=== PATIENT | male | born 1955 | race Caucasian/White ===

== ENCOUNTER 2017-07-20 14:03 | Inpatient (IN) | payer OTHER ==
[2017-07-20 15:46] LABS: ADD MAN DIFF? NO
[2017-07-20 15:48] LABS: WHITE BLOOD COUNT 14.3 10^3/ul (4.8-10.8)
[2017-07-20 15:48] LABS: BASOPHIL # 0.1 10^3/ul (0.0-0.1); BASOPHILS % 0.3 % (0.0-2.0); EOSINOPHILS # 0.1 10^3/ul (0.0-0.5); EOSINOPHILS % 0.9 % (0.0-7.0); HEMOGLOBIN 13.9 g/dl (14.0-18.0); LYMPHOCYTES # 4.5 10^3/ul (0.8-2.9); LYMPHOCYTES % 31.4 % (15.0-51.0); MEAN CORPUSCULAR HGB CONC 32.3 g/dl (32.0-37.0); MEAN CORPUSCULAR VOLUME 89.8 fl (82.0-101.0); MEAN PLATELET VOLUME 11.3 fl (7.4-10.4); MONOCYTE # 1.4 10^3/ul (0.3-0.9); MONOCYTES % 9.5 % (0.0-11.0); NEUTROPHIL # 8.2 10^3/ul (1.6-7.5); NEUTROPHILS % 57.4 % (39.0-77.0); PLATELET COUNT 266 10^3/UL (140-415); POSITIVE DIFF @See below; RED BLOOD COUNT 4.79 10^6/ul (4.70-6.10); RED CELL DISTRIBUTION WIDTH 13.6 % (11.5-14.5)
[2017-07-20 16:07] LABS: ANION GAP 13 (8-16); BLOOD UREA NITROGEN 44 mg/dl (7-20); CARBON DIOXIDE 26 mmol/L (21-31); CHLORIDE 105 mmol/L (97-110); GLUCOSE 233 mg/dl (70-220); POTASSIUM 4.6 mmol/L (3.5-5.1); SODIUM 139 mmol/L (135-144)
[2017-07-20 16:08] LABS: ALANINE AMINOTRANSFERASE 33 IU/L (13-69); ALBUMIN 3.8 g/dl (3.3-4.9); ALBUMIN/GLOBULIN RATIO 1.11; ALKALINE PHOSPHATASE 98 IU/L (42-121); ASPARTATE AMINO TRANSFERASE 30 IU/L (15-46); BILIRUBIN,INDIRECT 0.2 mg/dl (0-1.1); BILIRUBIN,TOTAL 0.2 mg/dl (0.2-1.3); CALCIUM 9.5 mg/dl (8.4-10.2); CREATININE 1.22 mg/dl (0.61-1.24); INR 1.04; PROTIME 13.7 Sec (11.9-14.9); PT RATIO 1.1; TOTAL PROTEIN 7.2 g/dl (6.1-8.1)
[2017-07-20] MEDS: DILTIAZEM 25 MG INJ IV (16:11)
[2017-07-20] MEDS: DILTIAZEM-D5W 125MG/125ML DRIP 125 ML IV (16:13)
[2017-07-20 16:18] LABS: B-TYPE NATRIURETIC PEPTIDE 487 PG/ML (0-125); TROPONIN-I 0.027 ng/ml (0.00-0.12)
[2017-07-20] MEDS ORDERED: ADENOSINE 3 MG/ML SYRINGE IV (17:00)
[2017-07-20] MEDS: ADENOSINE 3 MG/ML 2ML VIAL IV (17:19)
[2017-07-20] MEDS: ADENOSINE 6 MG INJ IV ×2 (17:21→17:23)
[2017-07-20] MEDS: AMIODARONE 150MG/D5W BOLUS 100 ML IV (17:48)
[2017-07-20] MEDS ORDERED: ACETAMINOPHEN 325 MG TAB PO ×2 (18:00→18:30)
[2017-07-20] MEDS ORDERED: ONDANSETRON 4 MG INJ IV ×2 (18:00→18:30)
[2017-07-20] MEDS ORDERED: NACL 0.9% 3 ML SYG IV (18:30)
[2017-07-20] MEDS ORDERED: HYDROCODONE/APAP (5/325) TAB PO (18:30)
[2017-07-20] MEDS ORDERED: LORAZEPAM 2 MG INJ IV (18:30)
[2017-07-20] MEDS ORDERED: BISACODYL (EC) 5 MG TAB PO (18:30)
[2017-07-20] MEDS: morphine 2 MG INJ IV ×2 (18:47→23:12)
[2017-07-20] MEDS: SOD CHLORIDE 0.45% 1,000 ML IV (18:48)
[2017-07-20] MEDS ORDERED: GLUCOSE GEL 15 GRAM TUBE BUCCAL (19:30)
[2017-07-20] MEDS ORDERED: GLUCAGON 1 MG INJ IM (19:30)
[2017-07-20] MEDS ORDERED: GLUCOSE GEL 15 GRAM TUBE PO ×2 (19:30)
[2017-07-20] MEDS ORDERED: DEXTROSE 50% 50 ML SYRINGE IV ×2 (19:30)
[2017-07-20] MEDS ORDERED: ALBUTEROL/IPRATROPIUM (NEB) 3 ML AMP HHN (19:30)
[2017-07-20] MEDS: AMIODARONE 900 MG in DEXTROSE 5% 482 ML IV (19:37)
[2017-07-20] MEDS: PROPOFOL 200 MG INJ IV (21:37)
[2017-07-20] MEDS: FENTAnyl 50 MCG/ML VIAL IV (21:37)
[2017-07-20 22:13] LABS: CREATINE KINASE 154 IU/L (23-200)
[2017-07-20 22:25] LABS: CK INDEX 1.4; TROPONIN-I 0.042 ng/ml (0.00-0.12)
[2017-07-20 22:35] LABS: CK-MB 2.11 ng/ml (0.0-2.4)
[2017-07-20] MEDS: TAMSULOSIN (SR) 0.4 MG CAP PO (23:07)
[2017-07-20] MEDS: APIXABAN 5 MG TABLET PO (23:07)
[2017-07-20] MEDS: GABAPENTIN 300 MG CAP PO (23:07)
[2017-07-20] MEDS: INSULIN ASPART [NOVOLOG] 3 ML PEN SC (23:41)
[2017-07-20] MEDS: INSULIN GLARGINE [LANtus] 3 ML PEN SC (23:47)
[2017-07-21] MEDS: ACCU-CHEK XX (02:00)
[2017-07-21] MEDS: DILTIAZEM-D5W 125MG/125ML DRIP 125 ML IV (04:07)
[2017-07-21] MEDS: morphine 2 MG INJ IV ×4 (04:54→20:55)
[2017-07-21] MEDS: PANTOPRAZOLE 40 MG INJ IV (05:36)
[2017-07-21 06:09] LABS: ADD MAN DIFF? NO
[2017-07-21 06:19] LABS: ABNORMAL IP MESSAGE 1; BASOPHIL # 0.1 10^3/ul (0.0-0.1); BASOPHILS % 0.5 % (0.0-2.0); EOSINOPHILS # 0.2 10^3/ul (0.0-0.5); EOSINOPHILS % 1.2 % (0.0-7.0); HEMATOCRIT 43.3 % (42.0-52.0); HEMOGLOBIN 13.7 g/dl (14.0-18.0); LYMPHOCYTES # 5.3 10^3/ul (0.8-2.9); LYMPHOCYTES % 41.3 % (15.0-51.0); MEAN CORPUSCULAR HGB CONC 31.6 g/dl (32.0-37.0); MEAN CORPUSCULAR VOLUME 91.7 fl (82.0-101.0); MEAN PLATELET VOLUME 11.6 fl (7.4-10.4); MONOCYTE # 1.3 10^3/ul (0.3-0.9); MONOCYTES % 9.7 % (0.0-11.0); NEUTROPHIL # 6.1 10^3/ul (1.6-7.5); NEUTROPHILS % 46.9 % (39.0-77.0); PLATELET COUNT 242 10^3/UL (140-415); POSITIVE DIFF @See below; RED BLOOD COUNT 4.72 10^6/ul (4.70-6.10); RED CELL DISTRIBUTION WIDTH 13.7 % (11.5-14.5)
[2017-07-21 06:19] LABS: WHITE BLOOD COUNT 12.9 10^3/ul (4.8-10.8)
[2017-07-21 06:31] LABS: ALANINE AMINOTRANSFERASE 40 IU/L (13-69); ALBUMIN 3.9 g/dl (3.3-4.9); ALBUMIN/GLOBULIN RATIO 1.25; ALKALINE PHOSPHATASE 85 IU/L (42-121); ANION GAP 15 (8-16); ASPARTATE AMINO TRANSFERASE 34 IU/L (15-46); BILIRUBIN,INDIRECT 0.3 mg/dl (0-1.1); BILIRUBIN,TOTAL 0.3 mg/dl (0.2-1.3); BLOOD UREA NITROGEN 40 mg/dl (7-20); CALCIUM 9.1 mg/dl (8.4-10.2); CARBON DIOXIDE 26 mmol/L (21-31); CHLORIDE 105 mmol/L (97-110); CREATININE 1.18 mg/dl (0.61-1.24); GLUCOSE 184 mg/dl (70-220); MAGNESIUM 1.9 mg/dl (1.7-2.5); POTASSIUM 4.6 mmol/L (3.5-5.1); SODIUM 141 mmol/L (135-144)
[2017-07-21] MEDS: SOD CHLORIDE 0.45% 1,000 ML IV (06:33)
[2017-07-21 06:35] LABS: CREATINE KINASE 120 IU/L (23-200)
[2017-07-21 06:37] LABS: B-TYPE NATRIURETIC PEPTIDE 249 PG/ML (0-125)
[2017-07-21 06:43] LABS: CK INDEX 1.6; TROPONIN-I 0.058 ng/ml (0.00-0.12)
[2017-07-21 06:46] LABS: CK-MB 1.89 ng/ml (0.0-2.4)
[2017-07-21] MEDS: INSULIN ASPART [NOVOLOG] 3 ML PEN SC ×4 (09:04→20:34)
[2017-07-21] MEDS: GABAPENTIN 300 MG CAP PO ×3 (09:06→20:28)
[2017-07-21] MEDS: BENAZEPRIL 10 MG TAB PO (09:06)
[2017-07-21] MEDS: THIAMINE 100 MG TAB PO (09:06)
[2017-07-21] MEDS: APIXABAN 5 MG TABLET PO ×2 (09:06→20:28)
[2017-07-21] MEDS: FAMOTIDINE 20 MG TAB PO (09:06)
[2017-07-21] MEDS: TAMSULOSIN (SR) 0.4 MG CAP PO ×2 (09:06→20:28)
[2017-07-21] MEDS: FUROSEMIDE 40 MG TAB PO (09:06)
[2017-07-21] MEDS: MAGNESIUM SULFATE 2 GM/50 ML 50 ML IVPB (14:30)
[2017-07-21] MEDS: DIGOXIN 500 MCG INJ IV (14:30)
[2017-07-21] MEDS: SILVER SULFADIAZINE 1% 25 GM CR TOP (20:29)
[2017-07-21] MEDS: INSULIN GLARGINE [LANtus] 3 ML PEN SC (20:33)
[2017-07-22] MEDS: morphine 2 MG INJ IV ×4 (00:56→15:06)
[2017-07-22] MEDS: ACCU-CHEK XX (02:00)
[2017-07-22] MEDS: PANTOPRAZOLE 40 MG INJ IV (04:58)
[2017-07-22] MEDS: INSULIN ASPART [NOVOLOG] 3 ML PEN SC ×4 (07:59→20:29)
[2017-07-22] MEDS: SILVER SULFADIAZINE 1% 25 GM CR TOP ×2 (08:10→20:30)
[2017-07-22] MEDS: FAMOTIDINE 20 MG TAB PO (08:11)
[2017-07-22] MEDS: GABAPENTIN 300 MG CAP PO ×3 (08:11→20:21)
[2017-07-22] MEDS: TAMSULOSIN (SR) 0.4 MG CAP PO ×2 (08:11→20:21)
[2017-07-22] MEDS: APIXABAN 5 MG TABLET PO ×2 (08:11→20:21)
[2017-07-22] MEDS: DILTIAZEM (CD) 120 MG CAP PO (08:12)
[2017-07-22] MEDS: FUROSEMIDE 40 MG TAB PO (08:12)
[2017-07-22] MEDS: BENAZEPRIL 5 MG TAB PO (08:12)
[2017-07-22] MEDS: THIAMINE 100 MG TAB PO (08:17)
[2017-07-22] MEDS: DIGOXIN 0.125 MG TAB PO (12:07)
[2017-07-22 14:27] LABS: ADD MAN DIFF? NO
[2017-07-22 14:36] LABS: BASOPHIL # 0.1 10^3/ul (0.0-0.1); BASOPHILS % 0.5 % (0.0-2.0); EOSINOPHILS # 0.2 10^3/ul (0.0-0.5); EOSINOPHILS % 1.8 % (0.0-7.0); HEMATOCRIT 41.9 % (42.0-52.0); HEMOGLOBIN 13.7 g/dl (14.0-18.0); LYMPHOCYTES # 3.7 10^3/ul (0.8-2.9); LYMPHOCYTES % 32.9 % (15.0-51.0); MEAN CORPUSCULAR HEMOGLOBIN 29.5 pg (29.0-33.0); MEAN CORPUSCULAR HGB CONC 32.7 g/dl (32.0-37.0); MEAN CORPUSCULAR VOLUME 90.1 fl (82.0-101.0); MEAN PLATELET VOLUME 11.7 fl (7.4-10.4); MONOCYTES % 9.4 % (0.0-11.0); NEUTROPHIL # 6.1 10^3/ul (1.6-7.5); NEUTROPHILS % 54.9 % (39.0-77.0); PLATELET COUNT 252 10^3/UL (140-415); RED BLOOD COUNT 4.65 10^6/ul (4.70-6.10); RED CELL DISTRIBUTION WIDTH 13.4 % (11.5-14.5)
[2017-07-22 14:36] LABS: WHITE BLOOD COUNT 11.1 10^3/ul (4.8-10.8)
[2017-07-22 14:57] LABS: ANION GAP 14 (8-16); BLOOD UREA NITROGEN 28 mg/dl (7-20); CALCIUM 9.6 mg/dl (8.4-10.2); CARBON DIOXIDE 26 mmol/L (21-31); CHLORIDE 101 mmol/L (97-110); CREATININE 0.92 mg/dl (0.61-1.24); GLUCOSE 194 mg/dl (70-220); MAGNESIUM 1.8 mg/dl (1.7-2.5); PHOSPHORUS 3.4 mg/dl (2.5-4.9); POTASSIUM 4.6 mmol/L (3.5-5.1); SODIUM 136 mmol/L (135-144)
[2017-07-22] MEDS: morphine LIQ (10 MG/5 ML) CUP PO (20:25)
[2017-07-22] MEDS: INSULIN GLARGINE [LANtus] 3 ML PEN SC (20:30)
[2017-07-23] MEDS: morphine LIQ (10 MG/5 ML) CUP PO ×3 (00:59→11:04)
[2017-07-23] MEDS: ACCU-CHEK XX (02:08)
[2017-07-23] MEDS: PANTOPRAZOLE 40 MG INJ IV (06:05)
[2017-07-23] MEDS: INSULIN ASPART [NOVOLOG] 3 ML PEN SC ×2 (07:48→11:54)
[2017-07-23] MEDS: BENAZEPRIL 5 MG TAB PO (08:25)
[2017-07-23] MEDS: DILTIAZEM (CD) 120 MG CAP PO (08:26)
[2017-07-23] MEDS: GABAPENTIN 300 MG CAP PO ×2 (08:26→12:15)
[2017-07-23] MEDS: FUROSEMIDE 20 MG TAB PO (08:26)
[2017-07-23] MEDS: FAMOTIDINE 20 MG TAB PO (08:26)
[2017-07-23] MEDS: APIXABAN 5 MG TABLET PO (08:27)
[2017-07-23] MEDS: TAMSULOSIN (SR) 0.4 MG CAP PO (08:27)
[2017-07-23] MEDS: SILVER SULFADIAZINE 1% 25 GM CR TOP (08:28)
[2017-07-23] MEDS: CEPASTAT LOZENGE MT (10:21)
[2017-07-23] MEDS: THIAMINE 100 MG TAB PO (10:21)
[2017-07-23] MEDS: DIGOXIN 0.125 MG TAB PO (12:15)
[2017-07-24] MEDS ORDERED: PANTOPRAZOLE (EC) 40 MG TAB PO (06:00)
== END 2017-07-23 16:00 | disposition home or self-care (01) | DRG 309 ==
LOC: MS4 07-22 00:09 → ICU 21:54 → E/R 14:03 → ICU 18:04
PROC: 5A2204Z Restoration of Cardiac Rhythm, Single (ICD-10-PCS; principal; 2017-07-20)
DX: I47.1 Supraventricular tachycardia (principal); Z68.42 Body mass index [BMI] 45.0-49.9, adult; I11.0 Hypertensive heart disease with heart failure; I50.9 Heart failure, unspecified; E66.9 Obesity, unspecified; E11.9 Type 2 diabetes mellitus without complications; I48.2 Chronic atrial fibrillation; F90.9 Attention-deficit hyperactivity disorder, unspecified type; E78.5 Hyperlipidemia, unspecified; J44.9 Chronic obstructive pulmonary disease, unspecified; Z79.4 Long term (current) use of insulin; Z79.02 Long term (current) use of antithrombotics/antiplatelets; Z87.891 Personal history of nicotine dependence
CPT/HCPCS: 36415; 71045; 80048; 80053; 82550; 82553; 82962; 83735; 83880; 84100; 84439; 84443; 84484; 85025; 85610; 87081; 93005; 93306; 96372; 96374; 96375; 96376; 99291-25

== ENCOUNTER 2017-08-19 12:35 | Inpatient (IN) | payer OTHER ==
[2017-08-19] MEDS: KETOROLAC 60 MG INJ IM (13:56)
[2017-08-19] MEDS: HYDROmorphONE 0.5 MG/0.5 ML SYG IV ×2 (16:20→20:39)
[2017-08-19] MEDS: ONDANSETRON 4 MG INJ IV (16:20)
[2017-08-19 16:38] LABS: ADD MAN DIFF? NO
[2017-08-19 16:39] LABS: WHITE BLOOD COUNT 18.1 10^3/ul (4.8-10.8)
[2017-08-19 16:39] LABS: BASOPHIL # 0.1 10^3/ul (0.0-0.1); BASOPHILS % 0.3 % (0.0-2.0); EOSINOPHILS # 0.3 10^3/ul (0.0-0.5); EOSINOPHILS % 1.8 % (0.0-7.0); HEMATOCRIT 45.3 % (42.0-52.0); HEMOGLOBIN 14.5 g/dl (14.0-18.0); LYMPHOCYTES # 3.9 10^3/ul (0.8-2.9); LYMPHOCYTES % 21.2 % (15.0-51.0); MEAN CORPUSCULAR HEMOGLOBIN 28.6 pg (29.0-33.0); MEAN CORPUSCULAR VOLUME 89.3 fl (82.0-101.0); MEAN PLATELET VOLUME 10.9 fl (7.4-10.4); MONOCYTE # 1.7 10^3/ul (0.3-0.9); MONOCYTES % 9.2 % (0.0-11.0); NEUTROPHIL # 12.1 10^3/ul (1.6-7.5); NEUTROPHILS % 66.7 % (39.0-77.0); PLATELET COUNT 333 10^3/UL (140-415); RED BLOOD COUNT 5.07 10^6/ul (4.70-6.10); RED CELL DISTRIBUTION WIDTH 13.7 % (11.5-14.5)
[2017-08-19 17:06] LABS: ANION GAP 16 (8-16); BLOOD UREA NITROGEN 26 mg/dl (7-20); CALCIUM 9.9 mg/dl (8.4-10.2); CARBON DIOXIDE 31 mmol/L (21-31); CHLORIDE 103 mmol/L (97-110); CREATININE 1.03 mg/dl (0.61-1.24); GLUCOSE 113 mg/dl (70-220); POTASSIUM 5.1 mmol/L (3.5-5.1); SODIUM 145 mmol/L (135-144)
[2017-08-19] MEDS ORDERED: ACETAMINOPHEN 325 MG TAB PO ×2 (18:30→19:00)
[2017-08-19] MEDS ORDERED: ONDANSETRON 4 MG INJ IV ×2 (18:30→19:00)
[2017-08-19] MEDS ORDERED: NACL 0.9% 3 ML SYG IV (19:00)
[2017-08-19] MEDS ORDERED: hydrALAzine 20 MG INJ IV (19:00)
[2017-08-19] MEDS ORDERED: GLUCOSE GEL 15 GRAM TUBE PO ×2 (19:30)
[2017-08-19] MEDS ORDERED: GLUCOSE GEL 15 GRAM TUBE BUCCAL (19:30)
[2017-08-19] MEDS ORDERED: GLUCAGON 1 MG INJ IM (19:30)
[2017-08-19] MEDS ORDERED: DEXTROSE 50% 50 ML SYRINGE IV ×2 (19:30)
[2017-08-19] MEDS: INSULIN GLARGINE [LANtus] 3 ML PEN SC (20:11)
[2017-08-19] MEDS: APIXABAN 5 MG TABLET PO (20:35)
[2017-08-19] MEDS: GABAPENTIN 300 MG CAP PO (20:35)
[2017-08-19] MEDS: TAMSULOSIN (SR) 0.4 MG CAP PO (20:35)
[2017-08-19] MEDS: INSULIN ASPART [NOVOLOG] 3 ML PEN SC (20:46)
[2017-08-19] MEDS: OXYCODONE/ACETAMINOPHEN (5/325) TAB PO (23:15)
[2017-08-20] MEDS: TRIMETHOPRIM/SULFAMETHOX (DS) TAB PO ×2 (00:51→08:34)
[2017-08-20] MEDS: HYDROmorphONE 0.5 MG/0.5 ML SYG IV ×6 (00:52→23:34)
[2017-08-20] MEDS: ACCU-CHEK XX (02:00)
[2017-08-20] MEDS: DIPHENHYDRAMINE 25 MG CAP PO (02:28)
[2017-08-20] MEDS: OXYCODONE/ACETAMINOPHEN (5/325) TAB PO ×2 (06:41→14:34)
[2017-08-20] MEDS: INSULIN ASPART [NOVOLOG] 3 ML PEN SC ×7 (07:50→20:33)
[2017-08-20] MEDS: TAMSULOSIN (SR) 0.4 MG CAP PO ×2 (08:34→20:20)
[2017-08-20] MEDS: APIXABAN 5 MG TABLET PO ×2 (08:34→20:20)
[2017-08-20] MEDS: GABAPENTIN 300 MG CAP PO ×3 (08:34→20:20)
[2017-08-20] MEDS: THIAMINE 100 MG TAB PO (08:34)
[2017-08-20] MEDS: FUROSEMIDE 20 MG TAB PO (08:35)
[2017-08-20] MEDS: FAMOTIDINE 20 MG TAB PO (08:35)
[2017-08-20] MEDS: DILTIAZEM (CD) 120 MG CAP PO (08:35)
[2017-08-20] MEDS ORDERED: ALBUTEROL/IPRATROPIUM (NEB) 3 ML AMP HHN (10:00)
[2017-08-20] MEDS: BENAZEPRIL 5 MG TAB PO (10:12)
[2017-08-20 11:06] LABS: WHITE BLOOD COUNT 13.1 10^3/ul (4.8-10.8)
[2017-08-20 11:06] LABS: HEMATOCRIT 42.8 % (42.0-52.0); HEMOGLOBIN 13.6 g/dl (14.0-18.0); MEAN CORPUSCULAR HEMOGLOBIN 28.6 pg (29.0-33.0); MEAN CORPUSCULAR HGB CONC 31.8 g/dl (32.0-37.0); MEAN CORPUSCULAR VOLUME 90.1 fl (82.0-101.0); MEAN PLATELET VOLUME 11.2 fl (7.4-10.4); PLATELET COUNT 292 10^3/UL (140-415); POSITIVE DIFF @See below; RED BLOOD COUNT 4.75 10^6/ul (4.70-6.10); RED CELL DISTRIBUTION WIDTH 13.7 % (11.5-14.5)
[2017-08-20 11:11] LABS: ADD MAN DIFF? YES
[2017-08-20 11:24] LABS: HEMOGLOBIN A1C 8.1 % (0-5.9)
[2017-08-20 11:24] LABS: ALANINE AMINOTRANSFERASE 42 IU/L (13-69); ALBUMIN 3.9 g/dl (3.3-4.9); ALBUMIN/GLOBULIN RATIO 1.11; ALKALINE PHOSPHATASE 117 IU/L (42-121); ANION GAP 15 (8-16); ASPARTATE AMINO TRANSFERASE 29 IU/L (15-46); BILIRUBIN,INDIRECT 0.3 mg/dl (0-1.1); BILIRUBIN,TOTAL 0.3 mg/dl (0.2-1.3); BLOOD UREA NITROGEN 31 mg/dl (7-20); CALCIUM 9.5 mg/dl (8.4-10.2); CARBON DIOXIDE 30 mmol/L (21-31); CHLORIDE 101 mmol/L (97-110); CREATININE 1.18 mg/dl (0.61-1.24); GLUCOSE 124 mg/dl (70-220); MAGNESIUM 1.7 mg/dl (1.7-2.5); SODIUM 141 mmol/L (135-144); TOTAL PROTEIN 7.4 g/dl (6.1-8.1)
[2017-08-20 11:50] LABS: BAND NEUTROPHILS #M 0.2 10^3/ul (0.0-0.6); BAND NEUTROPHILS % (M) 2 % (0-4); BASOPHIL #M 0.1 10^3/ul (0.0-0.0); BASOPHILS % (M) 1 % (0-2); EOSINOPHILS % (M) 6 % (0-7); GIANT THROMBO% (M) 1 % (0-0); LYMPHOCYTES #M 4.3 10^3/ul (0.8-2.9); LYMPHOCYTES % (M) 33 % (15-51); MONOCYTE #M 0.9 10^3/ul (0.3-0.9); MONOCYTES % (M) 7 % (0-11); MYELOCYTES #M 0.1 10^3/ul (0.0-0.0); MYELOCYTES % (M) 1 % (0-0); PLATELET ESTIMATE NORMAL; POLYCHROMASIA 1+ (0-0); REACTIVE LYMPHOCYTES #M 0.2 10^3/ul (0.0-0.0); REACTIVE LYMPHOCYTES% (M) 2 % (0-0); SEG NEUT #M 6.3 10^3/ul (1.6-7.5); SEGMENTED NEUTROPHILS (M) % 48 % (39-77); SMUDGE%M 6 % (0-0)
[2017-08-20] MEDS: DIGOXIN 0.125 MG TAB PO (12:44)
[2017-08-20] MEDS: BUDESONIDE (NEB) 0.5MG/2ML AMP HHN ×2 (14:00→21:04)
[2017-08-20] MEDS: ALBUTEROL/IPRATROPIUM (NEB) 3 ML AMP HHN ×2 (14:32→21:04)
[2017-08-20 15:51] LABS: B-TYPE NATRIURETIC PEPTIDE 58 PG/ML (0-125)
[2017-08-20] MEDS: FUROSEMIDE 40 MG INJ IV (18:21)
[2017-08-20] MEDS: DOXYCYCLINE 100 MG TAB PO (20:20)
[2017-08-20] MEDS: INSULIN GLARGINE [LANtus] 3 ML PEN SC (20:30)
[2017-08-21] MEDS: OXYCODONE/ACETAMINOPHEN (5/325) TAB PO ×2 (00:38→08:45)
[2017-08-21] MEDS: ACCU-CHEK XX (02:00)
[2017-08-21] MEDS: HYDROmorphONE 0.5 MG/0.5 ML SYG IV ×7 (02:34→23:59)
[2017-08-21] MEDS: FUROSEMIDE 40 MG INJ IV (05:26)
[2017-08-21] MEDS: INSULIN ASPART [NOVOLOG] 3 ML PEN SC ×7 (07:50→20:43)
[2017-08-21] MEDS: TAMSULOSIN (SR) 0.4 MG CAP PO ×2 (08:43→20:39)
[2017-08-21] MEDS: APIXABAN 5 MG TABLET PO ×2 (08:43→20:39)
[2017-08-21] MEDS: FAMOTIDINE 20 MG TAB PO (08:44)
[2017-08-21] MEDS: DOXYCYCLINE 100 MG TAB PO ×2 (08:44→20:39)
[2017-08-21] MEDS: BENAZEPRIL 5 MG TAB PO (08:44)
[2017-08-21] MEDS: DILTIAZEM (CD) 120 MG CAP PO (08:45)
[2017-08-21] MEDS: GABAPENTIN 300 MG CAP PO ×3 (08:45→20:39)
[2017-08-21] MEDS: THIAMINE 100 MG TAB PO (08:45)
[2017-08-21] MEDS: ALBUTEROL/IPRATROPIUM (NEB) 3 ML AMP HHN ×3 (09:05→20:19)
[2017-08-21] MEDS: BUDESONIDE (NEB) 0.5MG/2ML AMP HHN ×2 (09:15→20:19)
[2017-08-21 10:51] LABS: ADD MAN DIFF? NO
[2017-08-21 11:00] LABS: WHITE BLOOD COUNT 14.7 10^3/ul (4.8-10.8)
[2017-08-21 11:00] LABS: ABNORMAL IP MESSAGE 1; BASOPHIL # 0.1 10^3/ul (0.0-0.1); BASOPHILS % 0.5 % (0.0-2.0); EOSINOPHILS # 0.3 10^3/ul (0.0-0.5); EOSINOPHILS % 2.1 % (0.0-7.0); HEMATOCRIT 43.8 % (42.0-52.0); HEMOGLOBIN 14.3 g/dl (14.0-18.0); LYMPHOCYTES # 4.1 10^3/ul (0.8-2.9); LYMPHOCYTES % 28.1 % (15.0-51.0); MEAN CORPUSCULAR HEMOGLOBIN 28.9 pg (29.0-33.0); MEAN CORPUSCULAR HGB CONC 32.6 g/dl (32.0-37.0); MEAN CORPUSCULAR VOLUME 88.5 fl (82.0-101.0); MONOCYTE # 1.6 10^3/ul (0.3-0.9); MONOCYTES % 11.2 % (0.0-11.0); NEUTROPHIL # 8.4 10^3/ul (1.6-7.5); NEUTROPHILS % 57.3 % (39.0-77.0); PLATELET COUNT 249 10^3/UL (140-415); POSITIVE DIFF @See below; RED BLOOD COUNT 4.95 10^6/ul (4.70-6.10); RED CELL DISTRIBUTION WIDTH 13.7 % (11.5-14.5)
[2017-08-21 11:28] LABS: ANION GAP 18 (8-16); BLOOD UREA NITROGEN 29 mg/dl (7-20); CARBON DIOXIDE 32 mmol/L (21-31); CHLORIDE 96 mmol/L (97-110); CREATININE 1.15 mg/dl (0.61-1.24); GLUCOSE 76 mg/dl (70-220); MAGNESIUM 1.6 mg/dl (1.7-2.5); PHOSPHORUS 4.9 mg/dl (2.5-4.9); SODIUM 140 mmol/L (135-144)
[2017-08-21 11:31] LABS: POTASSIUM 5.7 mmol/L (3.5-5.1)
[2017-08-21] MEDS: CYCLOBENZAPRINE 10 MG TAB PO ×2 (12:52→20:39)
[2017-08-21] MEDS: OXYCODONE/ACETAMINOPHEN (10/325) TAB PO (12:52)
[2017-08-21] MEDS: MAGNESIUM OXIDE 400 MG TAB PO (12:52)
[2017-08-21] MEDS: DIGOXIN 0.125 MG TAB PO (13:08)
[2017-08-21 14:54] LABS: ANION GAP 17 (8-16); BLOOD UREA NITROGEN 31 mg/dl (7-20); CARBON DIOXIDE 31 mmol/L (21-31); CHLORIDE 98 mmol/L (97-110); CREATININE 1.38 mg/dl (0.61-1.24); GLUCOSE 122 mg/dl (70-220); POTASSIUM 4.8 mmol/L (3.5-5.1); SODIUM 141 mmol/L (135-144)
[2017-08-21] MEDS ORDERED: FUROSEMIDE 20 MG INJ IV (18:00)
[2017-08-21] MEDS ORDERED: BUDESONIDE (NEB) 0.5MG/2ML AMP HHN (20:00)
[2017-08-21] MEDS: INSULIN GLARGINE [LANtus] 3 ML PEN SC (20:44)
[2017-08-22] MEDS: ACCU-CHEK XX (02:08)
[2017-08-22] MEDS: HYDROmorphONE 0.5 MG/0.5 ML SYG IV ×4 (02:59→19:50)
[2017-08-22 05:12] LABS: ADD MAN DIFF? NO
[2017-08-22 05:18] LABS: ABNORMAL IP MESSAGE 1; BASOPHIL # 0.1 10^3/ul (0.0-0.1); BASOPHILS % 0.5 % (0.0-2.0); EOSINOPHILS # 0.4 10^3/ul (0.0-0.5); EOSINOPHILS % 2.5 % (0.0-7.0); HEMATOCRIT 43.1 % (42.0-52.0); HEMOGLOBIN 13.8 g/dl (14.0-18.0); LYMPHOCYTES # 2.8 10^3/ul (0.8-2.9); LYMPHOCYTES % 20.3 % (15.0-51.0); MEAN CORPUSCULAR HEMOGLOBIN 28.6 pg (29.0-33.0); MEAN CORPUSCULAR VOLUME 89.2 fl (82.0-101.0); MEAN PLATELET VOLUME 11.2 fl (7.4-10.4); MONOCYTE # 1.6 10^3/ul (0.3-0.9); MONOCYTES % 11.6 % (0.0-11.0); NEUTROPHILS % 64.4 % (39.0-77.0); PLATELET COUNT 301 10^3/UL (140-415); POSITIVE DIFF @See below; RED BLOOD COUNT 4.83 10^6/ul (4.70-6.10); RED CELL DISTRIBUTION WIDTH 13.3 % (11.5-14.5)
[2017-08-22 05:48] LABS: PHOSPHORUS 5.1 mg/dl (2.5-4.9)
[2017-08-22] MEDS: INSULIN ASPART [NOVOLOG] 3 ML PEN SC ×7 (07:50→21:00)
[2017-08-22] MEDS: ALBUTEROL/IPRATROPIUM (NEB) 3 ML AMP HHN ×3 (08:00→20:19)
[2017-08-22] MEDS: GABAPENTIN 300 MG CAP PO ×3 (08:30→21:17)
[2017-08-22] MEDS: FAMOTIDINE 20 MG TAB PO (08:30)
[2017-08-22] MEDS: BENAZEPRIL 5 MG TAB PO (08:30)
[2017-08-22] MEDS: TAMSULOSIN (SR) 0.4 MG CAP PO ×2 (08:30→21:18)
[2017-08-22] MEDS: THIAMINE 100 MG TAB PO (08:31)
[2017-08-22] MEDS: APIXABAN 5 MG TABLET PO ×2 (08:31→21:18)
[2017-08-22] MEDS: DOXYCYCLINE 100 MG TAB PO ×2 (08:31→21:17)
[2017-08-22] MEDS: FUROSEMIDE 20 MG TAB PO (08:31)
[2017-08-22] MEDS: CYCLOBENZAPRINE 10 MG TAB PO ×3 (08:32→21:18)
[2017-08-22] MEDS: DILTIAZEM (CD) 120 MG CAP PO (08:32)
[2017-08-22] MEDS: OXYCODONE/ACETAMINOPHEN (10/325) TAB PO ×2 (08:38→16:32)
[2017-08-22] MEDS: BUDESONIDE (NEB) 0.5MG/2ML AMP HHN ×2 (08:52→20:19)
[2017-08-22] MEDS: morphine (ER) 15 MG TAB PO ×2 (13:24→21:18)
[2017-08-22] MEDS: DIGOXIN 0.125 MG TAB PO (13:26)
[2017-08-22 14:19] LABS: ANION GAP 17 (8-16); BLOOD UREA NITROGEN 28 mg/dl (7-20); CARBON DIOXIDE 28 mmol/L (21-31); CHLORIDE 100 mmol/L (97-110); GLUCOSE 74 mg/dl (70-220); SODIUM 140 mmol/L (135-144)
[2017-08-22 14:23] LABS: POTASSIUM 5.1 mmol/L (3.5-5.1)
[2017-08-22] MEDS: INSULIN GLARGINE [LANtus] 3 ML PEN SC (20:00)
[2017-08-23] MEDS: INSULIN GLARGINE [LANtus] 3 ML PEN SC ×3 (00:45→21:28)
[2017-08-23] MEDS: HYDROmorphONE 0.5 MG/0.5 ML SYG IV ×5 (01:15→23:10)
[2017-08-23] MEDS: ACCU-CHEK XX (02:00)
[2017-08-23] MEDS: MAGNESIUM HYDROXIDE 30ML CUP PO (02:34)
[2017-08-23] MEDS: SENNA TAB PO ×3 (02:34→21:00)
[2017-08-23] MEDS: OXYCODONE/ACETAMINOPHEN (10/325) TAB PO ×2 (03:38→18:23)
[2017-08-23 05:24] LABS: ADD MAN DIFF? NO
[2017-08-23 05:41] LABS: ABNORMAL IP MESSAGE 1; BASOPHIL # 0.1 10^3/ul (0.0-0.1); BASOPHILS % 0.6 % (0.0-2.0); EOSINOPHILS # 0.5 10^3/ul (0.0-0.5); EOSINOPHILS % 3.2 % (0.0-7.0); HEMATOCRIT 41.8 % (42.0-52.0); HEMOGLOBIN 13.5 g/dl (14.0-18.0); LYMPHOCYTES # 4.6 10^3/ul (0.8-2.9); LYMPHOCYTES % 31.8 % (15.0-51.0); MEAN CORPUSCULAR HEMOGLOBIN 28.7 pg (29.0-33.0); MEAN CORPUSCULAR HGB CONC 32.3 g/dl (32.0-37.0); MEAN CORPUSCULAR VOLUME 88.7 fl (82.0-101.0); MEAN PLATELET VOLUME 11.4 fl (7.4-10.4); MONOCYTE # 1.8 10^3/ul (0.3-0.9); MONOCYTES % 12.2 % (0.0-11.0); NEUTROPHIL # 7.4 10^3/ul (1.6-7.5); NEUTROPHILS % 51.4 % (39.0-77.0); PLATELET COUNT 290 10^3/UL (140-415); POSITIVE DIFF @See below; RED BLOOD COUNT 4.71 10^6/ul (4.70-6.10); RED CELL DISTRIBUTION WIDTH 13.5 % (11.5-14.5)
[2017-08-23 05:41] LABS: WHITE BLOOD COUNT 14.3 10^3/ul (4.8-10.8)
[2017-08-23 05:56] LABS: ANION GAP 13 (8-16); BLOOD UREA NITROGEN 32 mg/dl (7-20); CALCIUM 10.1 mg/dl (8.4-10.2); CARBON DIOXIDE 36 mmol/L (21-31); CHLORIDE 96 mmol/L (97-110); CREATININE 1.35 mg/dl (0.61-1.24); GLUCOSE 123 mg/dl (70-220); MAGNESIUM 1.9 mg/dl (1.7-2.5); PHOSPHORUS 4.9 mg/dl (2.5-4.9); POTASSIUM 4.9 mmol/L (3.5-5.1); SODIUM 140 mmol/L (135-144)
[2017-08-23] MEDS: INSULIN ASPART [NOVOLOG] 3 ML PEN SC ×7 (07:50→21:00)
[2017-08-23] MEDS: ALBUTEROL/IPRATROPIUM (NEB) 3 ML AMP HHN ×4 (08:00→19:46)
[2017-08-23] MEDS: CYCLOBENZAPRINE 10 MG TAB PO ×3 (08:42→21:00)
[2017-08-23] MEDS: TAMSULOSIN (SR) 0.4 MG CAP PO ×2 (08:42→21:00)
[2017-08-23] MEDS: GABAPENTIN 300 MG CAP PO ×3 (08:42→21:00)
[2017-08-23] MEDS: THIAMINE 100 MG TAB PO (08:42)
[2017-08-23] MEDS: DOXYCYCLINE 100 MG TAB PO ×2 (08:43→21:00)
[2017-08-23] MEDS: DILTIAZEM (CD) 120 MG CAP PO (08:43)
[2017-08-23] MEDS: APIXABAN 5 MG TABLET PO ×2 (08:43→21:00)
[2017-08-23] MEDS: BENAZEPRIL 5 MG TAB PO (08:44)
[2017-08-23] MEDS: morphine (ER) 15 MG TAB PO (08:48)
[2017-08-23] MEDS: BUDESONIDE (NEB) 0.5MG/2ML AMP HHN ×3 (09:12→19:45)
[2017-08-23] MEDS: FAMOTIDINE 20 MG TAB PO (09:22)
[2017-08-23] MEDS: DIGOXIN 0.125 MG TAB PO (12:53)
[2017-08-23] MEDS: morphine (ER) 30 MG TAB PO (20:59)
[2017-08-24] MEDS: ACCU-CHEK XX (02:30)
[2017-08-24] MEDS: HYDROmorphONE 0.5 MG/0.5 ML SYG IV ×4 (03:44→21:32)
[2017-08-24 05:23] LABS: ADD MAN DIFF? NO
[2017-08-24 05:30] LABS: ABNORMAL IP MESSAGE 1; BASOPHIL # 0.1 10^3/ul (0.0-0.1); BASOPHILS % 0.6 % (0.0-2.0); EOSINOPHILS # 0.5 10^3/ul (0.0-0.5); EOSINOPHILS % 3.8 % (0.0-7.0); HEMATOCRIT 41.3 % (42.0-52.0); HEMOGLOBIN 13.2 g/dl (14.0-18.0); LYMPHOCYTES # 3.8 10^3/ul (0.8-2.9); LYMPHOCYTES % 30.1 % (15.0-51.0); MEAN CORPUSCULAR HEMOGLOBIN 28.6 pg (29.0-33.0); MEAN CORPUSCULAR VOLUME 89.6 fl (82.0-101.0); MEAN PLATELET VOLUME 11.8 fl (7.4-10.4); MONOCYTE # 1.7 10^3/ul (0.3-0.9); MONOCYTES % 13.3 % (0.0-11.0); NEUTROPHIL # 6.4 10^3/ul (1.6-7.5); NEUTROPHILS % 51.6 % (39.0-77.0); PLATELET COUNT 225 10^3/UL (140-415); POSITIVE DIFF @See below; RED BLOOD COUNT 4.61 10^6/ul (4.70-6.10); RED CELL DISTRIBUTION WIDTH 13.5 % (11.5-14.5)
[2017-08-24 05:30] LABS: WHITE BLOOD COUNT 12.5 10^3/ul (4.8-10.8)
[2017-08-24 06:01] LABS: ANION GAP 15 (8-16); BLOOD UREA NITROGEN 32 mg/dl (7-20); CALCIUM 9.9 mg/dl (8.4-10.2); CARBON DIOXIDE 31 mmol/L (21-31); CHLORIDE 100 mmol/L (97-110); CREATININE 1.16 mg/dl (0.61-1.24); GLUCOSE 144 mg/dl (70-220); MAGNESIUM 2.1 mg/dl (1.7-2.5); PHOSPHORUS 4.9 mg/dl (2.5-4.9); SODIUM 141 mmol/L (135-144)
[2017-08-24] MEDS: BUDESONIDE (NEB) 0.5MG/2ML AMP HHN ×2 (07:37→21:15)
[2017-08-24] MEDS: ALBUTEROL/IPRATROPIUM (NEB) 3 ML AMP HHN ×3 (07:37→21:15)
[2017-08-24] MEDS: TAMSULOSIN (SR) 0.4 MG CAP PO ×2 (08:27→20:51)
[2017-08-24] MEDS: THIAMINE 100 MG TAB PO (08:27)
[2017-08-24] MEDS: GABAPENTIN 300 MG CAP PO ×3 (08:27→20:50)
[2017-08-24] MEDS: FAMOTIDINE 20 MG TAB PO (08:27)
[2017-08-24] MEDS: morphine (ER) 30 MG TAB PO ×2 (08:27→20:50)
[2017-08-24] MEDS: CYCLOBENZAPRINE 10 MG TAB PO ×3 (08:27→20:51)
[2017-08-24] MEDS: DOXYCYCLINE 100 MG TAB PO ×2 (08:28→20:51)
[2017-08-24] MEDS: BENAZEPRIL 5 MG TAB PO (08:28)
[2017-08-24] MEDS: DILTIAZEM (CD) 120 MG CAP PO (08:28)
[2017-08-24] MEDS: APIXABAN 5 MG TABLET PO ×2 (08:28→20:51)
[2017-08-24] MEDS: SENNA TAB PO ×2 (08:28→20:51)
[2017-08-24] MEDS: INSULIN ASPART [NOVOLOG] 3 ML PEN SC ×7 (08:29→20:55)
[2017-08-24] MEDS: METHYLPREDNISOLONE 40 MG INJ IV ×2 (13:08→20:59)
[2017-08-24] MEDS: OXYCODONE/ACETAMINOPHEN (10/325) TAB PO (13:08)
[2017-08-24] MEDS: DIGOXIN 0.125 MG TAB PO (13:09)
[2017-08-24] MEDS: INSULIN GLARGINE [LANtus] 3 ML PEN SC (20:58)
[2017-08-25] MEDS: OXYCODONE/ACETAMINOPHEN (10/325) TAB PO (01:43)
[2017-08-25] MEDS: ACCU-CHEK XX (01:53)
[2017-08-25] MEDS: HYDROmorphONE 0.5 MG/0.5 ML SYG IV ×4 (07:33→21:24)
[2017-08-25] MEDS: THIAMINE 100 MG TAB PO (08:32)
[2017-08-25] MEDS: TAMSULOSIN (SR) 0.4 MG CAP PO ×2 (08:32→20:19)
[2017-08-25] MEDS: DILTIAZEM (CD) 120 MG CAP PO (08:32)
[2017-08-25] MEDS: DOXYCYCLINE 100 MG TAB PO ×2 (08:32→20:19)
[2017-08-25] MEDS: GABAPENTIN 300 MG CAP PO ×3 (08:33→20:19)
[2017-08-25] MEDS: APIXABAN 5 MG TABLET PO ×2 (08:33→20:19)
[2017-08-25] MEDS: SENNA TAB PO ×2 (08:33→20:19)
[2017-08-25] MEDS: FAMOTIDINE 20 MG TAB PO (08:34)
[2017-08-25] MEDS: BENAZEPRIL 5 MG TAB PO (08:34)
[2017-08-25] MEDS: CYCLOBENZAPRINE 10 MG TAB PO ×3 (08:34→20:19)
[2017-08-25] MEDS: METHYLPREDNISOLONE 40 MG INJ IV (08:35)
[2017-08-25] MEDS: morphine (ER) 30 MG TAB PO ×2 (08:35→20:20)
[2017-08-25] MEDS: ALBUTEROL/IPRATROPIUM (NEB) 3 ML AMP HHN ×3 (08:51→19:03)
[2017-08-25] MEDS: INSULIN ASPART [NOVOLOG] 3 ML PEN SC ×8 (09:00→21:23)
[2017-08-25] MEDS: BUDESONIDE (NEB) 0.5MG/2ML AMP HHN ×2 (09:17→19:03)
[2017-08-25 11:26] LABS: FREE TESTOSTERONE 16.2 pg/mL (35.0-155.0); TESTOSTERONE, TOTAL 113 ng/dL (250-1100)
[2017-08-25 11:34] LABS: ABNORMAL IP MESSAGE 1; HEMATOCRIT 40.3 % (42.0-52.0); HEMOGLOBIN 13.1 g/dl (14.0-18.0); MEAN CORPUSCULAR HEMOGLOBIN 28.7 pg (29.0-33.0); MEAN CORPUSCULAR HGB CONC 32.5 g/dl (32.0-37.0); MEAN CORPUSCULAR VOLUME 88.2 fl (82.0-101.0); MEAN PLATELET VOLUME 11.1 fl (7.4-10.4); PLATELET COUNT 292 10^3/UL (140-415); POSITIVE DIFF @See below; RED BLOOD COUNT 4.57 10^6/ul (4.70-6.10); RED CELL DISTRIBUTION WIDTH 13.3 % (11.5-14.5)
[2017-08-25 11:38] LABS: ADD MAN DIFF? YES
[2017-08-25 12:01] LABS: ALBUMIN 3.9 g/dl (3.3-4.9); ANION GAP 17 (8-16); BLOOD UREA NITROGEN 36 mg/dl (7-20); CALCIUM 9.7 mg/dl (8.4-10.2); CARBON DIOXIDE 27 mmol/L (21-31); CHLORIDE 98 mmol/L (97-110); GLUCOSE 311 mg/dl (70-220); MAGNESIUM 1.8 mg/dl (1.7-2.5); PHOSPHORUS 3.6 mg/dl (2.5-4.9); POTASSIUM 5.5 mmol/L (3.5-5.1); SODIUM 136 mmol/L (135-144)
[2017-08-25] MEDS: DIGOXIN 0.125 MG TAB PO (13:17)
[2017-08-25 13:40] LABS: BAND NEUTROPHILS #M 0.2 10^3/ul (0.0-0.6); BAND NEUTROPHILS % (M) 2 % (0-4); SEGMENTED NEUTROPHILS (M) % 82 % (39-77)
[2017-08-25 13:41] LABS: ANISOCYTOSIS 2+ (0-0); GIANT THROMBO% (M) 1 % (0-0); HYPOCHROMASIA 1+ (0-0); LYMPHOCYTES #M 1.4 10^3/ul (0.8-2.9); LYMPHOCYTES % (M) 10 % (15-51); MICROCYTOSIS 1+ (0-0); MONOCYTE #M 0.5 10^3/ul (0.3-0.9); MONOCYTES % (M) 4 % (0-11); MYELOCYTES #M 0.2 10^3/ul (0.0-0.0); MYELOCYTES % (M) 2 % (0-0); PLATELET ESTIMATE NORMAL; POLYCHROMASIA 3+ (0-0); SEG NEUT #M 11.5 10^3/ul (1.6-7.5)
[2017-08-25] MEDS: INSULIN GLARGINE [LANtus] 3 ML PEN SC (21:15)
[2017-08-26] MEDS: HYDROmorphONE 0.5 MG/0.5 ML SYG IV ×6 (01:35→22:38)
[2017-08-26] MEDS: ACCU-CHEK XX (01:47)
[2017-08-26] MEDS: OXYCODONE/ACETAMINOPHEN (10/325) TAB PO ×2 (03:42→19:16)
[2017-08-26 05:16] LABS: ADD MAN DIFF? NO
[2017-08-26 05:19] LABS: WHITE BLOOD COUNT 19.6 10^3/ul (4.8-10.8)
[2017-08-26 05:19] LABS: ABNORMAL IP MESSAGE 1; BASOPHILS % 0.2 % (0.0-2.0); EOSINOPHILS % 0.1 % (0.0-7.0); HEMOGLOBIN 13.1 g/dl (14.0-18.0); LYMPHOCYTES # 3.4 10^3/ul (0.8-2.9); LYMPHOCYTES % 17.3 % (15.0-51.0); MEAN CORPUSCULAR HEMOGLOBIN 28.5 pg (29.0-33.0); MEAN CORPUSCULAR VOLUME 89.1 fl (82.0-101.0); MEAN PLATELET VOLUME 11.3 fl (7.4-10.4); MONOCYTE # 2.2 10^3/ul (0.3-0.9); NEUTROPHIL # 13.9 10^3/ul (1.6-7.5); NEUTROPHILS % 70.8 % (39.0-77.0); PLATELET COUNT 285 10^3/UL (140-415); POSITIVE DIFF @See below; RED CELL DISTRIBUTION WIDTH 13.3 % (11.5-14.5)
[2017-08-26 05:40] LABS: ALBUMIN 4.1 g/dl (3.3-4.9); ANION GAP 16 (8-16); BLOOD UREA NITROGEN 39 mg/dl (7-20); CALCIUM 9.8 mg/dl (8.4-10.2); CARBON DIOXIDE 29 mmol/L (21-31); CHLORIDE 100 mmol/L (97-110); CREATININE 1.15 mg/dl (0.61-1.24); GLUCOSE 207 mg/dl (70-220); PHOSPHORUS 4.1 mg/dl (2.5-4.9); POTASSIUM 4.9 mmol/L (3.5-5.1); SODIUM 140 mmol/L (135-144)
[2017-08-26] MEDS: BUDESONIDE (NEB) 0.5MG/2ML AMP HHN ×2 (08:08→20:45)
[2017-08-26] MEDS: ALBUTEROL/IPRATROPIUM (NEB) 3 ML AMP HHN ×3 (08:09→20:45)
[2017-08-26] MEDS: CYCLOBENZAPRINE 10 MG TAB PO ×3 (08:29→21:10)
[2017-08-26] MEDS: SENNA TAB PO ×2 (08:29→21:10)
[2017-08-26] MEDS: TAMSULOSIN (SR) 0.4 MG CAP PO ×2 (08:29→21:10)
[2017-08-26] MEDS: GABAPENTIN 300 MG CAP PO ×3 (08:29→21:09)
[2017-08-26] MEDS: APIXABAN 5 MG TABLET PO ×2 (08:29→21:10)
[2017-08-26] MEDS: THIAMINE 100 MG TAB PO (08:30)
[2017-08-26] MEDS: DOXYCYCLINE 100 MG TAB PO ×2 (08:30→21:09)
[2017-08-26] MEDS: FAMOTIDINE 20 MG TAB PO (08:30)
[2017-08-26] MEDS: morphine (ER) 30 MG TAB PO (08:30)
[2017-08-26] MEDS: DILTIAZEM (CD) 120 MG CAP PO (08:31)
[2017-08-26] MEDS: BENAZEPRIL 5 MG TAB PO (08:31)
[2017-08-26] MEDS: METHYLPREDNISOLONE 40 MG INJ IV (08:32)
[2017-08-26] MEDS: INSULIN ASPART [NOVOLOG] 3 ML PEN SC ×7 (10:55→21:18)
[2017-08-26] MEDS: BISACODYL 10 MG SUPP PR (12:43)
[2017-08-26] MEDS: DIGOXIN 0.125 MG TAB PO (12:44)
[2017-08-26] MEDS: CALCIUM/VITAMIN D (500/200) TAB PO (21:10)
[2017-08-26] MEDS: INSULIN GLARGINE [LANtus] 3 ML PEN SC (21:17)
[2017-08-27] MEDS: ACCU-CHEK XX (02:00)
[2017-08-27] MEDS: HYDROmorphONE 0.5 MG/0.5 ML SYG IV ×2 (03:07→06:23)
[2017-08-27] MEDS: OXYCODONE/ACETAMINOPHEN (10/325) TAB PO ×3 (04:45→13:52)
[2017-08-27 05:16] LABS: ADD MAN DIFF? NO
[2017-08-27 05:26] LABS: WHITE BLOOD COUNT 18.3 10^3/ul (4.8-10.8)
[2017-08-27 05:26] LABS: ABNORMAL IP MESSAGE 1; BASOPHIL # 0.1 10^3/ul (0.0-0.1); BASOPHILS % 0.3 % (0.0-2.0); EOSINOPHILS % 0.1 % (0.0-7.0); HEMATOCRIT 43.2 % (42.0-52.0); LYMPHOCYTES # 4.4 10^3/ul (0.8-2.9); MEAN CORPUSCULAR HGB CONC 32.4 g/dl (32.0-37.0); MEAN CORPUSCULAR VOLUME 89.4 fl (82.0-101.0); MONOCYTE # 2.1 10^3/ul (0.3-0.9); MONOCYTES % 11.3 % (0.0-11.0); NEUTROPHIL # 11.6 10^3/ul (1.6-7.5); NEUTROPHILS % 63.8 % (39.0-77.0); PLATELET COUNT 303 10^3/UL (140-415); POSITIVE DIFF @See below; RED BLOOD COUNT 4.83 10^6/ul (4.70-6.10); RED CELL DISTRIBUTION WIDTH 13.6 % (11.5-14.5)
[2017-08-27 05:40] LABS: ALBUMIN 4.2 g/dl (3.3-4.9); BLOOD UREA NITROGEN 35 mg/dl (7-20); CALCIUM 10.2 mg/dl (8.4-10.2); CARBON DIOXIDE 31 mmol/L (21-31); CREATININE 1.09 mg/dl (0.61-1.24); GLUCOSE 161 mg/dl (70-220); PHOSPHORUS 4.1 mg/dl (2.5-4.9)
[2017-08-27 05:49] LABS: ANION GAP 17 (8-16); CHLORIDE 100 mmol/L (97-110); POTASSIUM 5.2 mmol/L (3.5-5.1); SODIUM 143 mmol/L (135-144)
[2017-08-27] MEDS: MAGNESIUM HYDROXIDE 30ML CUP PO (06:23)
[2017-08-27] MEDS: SENNA TAB PO (09:17)
[2017-08-27] MEDS: CALCIUM/VITAMIN D (500/200) TAB PO (09:17)
[2017-08-27] MEDS: THIAMINE 100 MG TAB PO (09:17)
[2017-08-27] MEDS: TAMSULOSIN (SR) 0.4 MG CAP PO (09:18)
[2017-08-27] MEDS: CYCLOBENZAPRINE 10 MG TAB PO ×2 (09:18→12:38)
[2017-08-27] MEDS: DOXYCYCLINE 100 MG TAB PO (09:18)
[2017-08-27] MEDS: predniSONE 20 MG TAB PO (09:18)
[2017-08-27] MEDS: FAMOTIDINE 20 MG TAB PO (09:18)
[2017-08-27] MEDS: GABAPENTIN 300 MG CAP PO ×2 (09:18→12:38)
[2017-08-27] MEDS: APIXABAN 5 MG TABLET PO (09:21)
[2017-08-27] MEDS: DILTIAZEM (CD) 120 MG CAP PO (09:21)
[2017-08-27] MEDS: INSULIN ASPART [NOVOLOG] 3 ML PEN SC ×4 (09:27→11:40)
[2017-08-27] MEDS: BENAZEPRIL 5 MG TAB PO (09:34)
[2017-08-27] MEDS: BUDESONIDE (NEB) 0.5MG/2ML AMP HHN (09:40)
[2017-08-27] MEDS: ALBUTEROL/IPRATROPIUM (NEB) 3 ML AMP HHN (09:41)
[2017-08-27] MEDS: DIGOXIN 0.125 MG TAB PO (12:38)
== END 2017-08-27 13:55 | disposition home or self-care (01) | DRG 552 ==
LOC: FTE 12:35 → MS1 18:14
DX: S32.049A Unspecified fracture of fourth lumbar vertebra, initial encounter for closed fracture (principal); N17.9 Acute kidney failure, unspecified; L97.829 Non-pressure chronic ulcer of other part of left lower leg with unspecified severity; E11.40 Type 2 diabetes mellitus with diabetic neuropathy, unspecified; I11.0 Hypertensive heart disease with heart failure; I50.30 Unspecified diastolic (congestive) heart failure; I47.1 Supraventricular tachycardia; N39.0 Urinary tract infection, site not specified; Z68.42 Body mass index [BMI] 45.0-49.9, adult; J44.9 Chronic obstructive pulmonary disease, unspecified; E66.01 Morbid (severe) obesity due to excess calories; I48.2 Chronic atrial fibrillation; F32.9 Major depressive disorder, single episode, unspecified; E78.5 Hyperlipidemia, unspecified; R09.02 Hypoxemia; X50.0XXA Overexertion from strenuous movement or load, initial encounter; Y93.89 Activity, other specified; Y92.9 Unspecified place or not applicable; Y99.8 Other external cause status; Z79.4 Long term (current) use of insulin; Z79.84 Long term (current) use of oral hypoglycemic drugs; Z79.02 Long term (current) use of antithrombotics/antiplatelets; Z87.891 Personal history of nicotine dependence
CPT/HCPCS: 36415; 71045; 71250; 72131; 80048; 80053; 80069; 82306; 82962; 83036; 83735; 83880; 84100; 84403; 85025; 94640; 94664; 96372; 96374; 96375; 96376; 97116; 97161; 97530; 99285-25

== ENCOUNTER 2017-09-03 11:43 | Emergency (ER) | payer OTHER ==
[2017-09-03] MEDS: KETOROLAC 60 MG INJ IM (13:08)
== END 2017-09-03 13:34 | disposition home or self-care (01) ==
LOC: E/R 13:34
DX: M54.5 Low back pain (principal); G89.4 Chronic pain syndrome; I10 Essential (primary) hypertension; E11.9 Type 2 diabetes mellitus without complications; I50.9 Heart failure, unspecified; E66.01 Morbid (severe) obesity due to excess calories; Z79.4 Long term (current) use of insulin
CPT/HCPCS: 96372; 99284-25

== ENCOUNTER 2017-11-26 11:09 | Day surgery (SDC) | payer OTHER ==
[~2017-11-26 11:09] MED LIST: CEFAZOLIN 3 GM in DEXTROSE 5% 100 ML IVPB; LACTATED RINGER'S 1,000 ML IV*; LIDOCAINE 2% (SDV) 5 ML INJ; ROCURONIUM 50 MG INJ
[2017-11-26] MEDS ORDERED: ONDANSETRON 4 MG INJ IV (12:30)
[2017-11-26] MEDS ORDERED: FENTAnyl 50 MCG/ML VIAL IV ×2 (12:30)
[2017-11-26] MEDS ORDERED: HYDROmorphONE 1 MG/5 ML IV SYRINGE IV ×3 (12:30)
[2017-11-26] MEDS ORDERED: ALBUTEROL 0.083% (NEB) 2.5 MG/3 ML AMP HHN (12:30)
[2017-11-26] MEDS ORDERED: METOCLOPRAMIDE 10 MG INJ IV (12:30)
[2017-11-26] MEDS ORDERED: MIDAZOLAM 1 MG/ML 2 ML INJ (13:48)
[2017-11-26] MEDS ORDERED: ROPIVACAINE 0.2% 20 ML VIAL (13:49)
[2017-11-26] MEDS ORDERED: PHENYLephrine (100 MCG/ML) 5ML SYG ×2 (14:29→15:40)
[2017-11-26] MEDS ORDERED: ROCURONIUM 50 MG INJ (14:49)
[2017-11-26] MEDS ORDERED: CEFAZOLIN 1 GM INJ (14:49)
[2017-11-26] MEDS ORDERED: PROPOFOL 20 ML (14:49)
[2017-11-26] MEDS ORDERED: SUCCINYLCHOLINE CHLORIDE 100 MG/5 ML SYG IV (14:49)
[2017-11-26] MEDS ORDERED: SUGAMMADEX SODIUM 200 MG/2 ML VIAL IV (14:49)
[2017-11-26] MEDS: POLYMYXIN/BACITRACIN 1L IRRIG IRR (15:10)
[2017-11-26] MEDS ORDERED: ALBUMIN HUMAN 5% 0 ML (17:18)
[2017-11-26] MEDS ORDERED: ALBUMIN HUMAN 5% 250 ML IV (17:30)
== END 2017-11-26 18:55 | disposition home or self-care (01) ==
LOC: SDS 11:09
DX: T84.84XA Pain due to internal orthopedic prosthetic devices, implants and grafts, initial encounter (principal); Y79.3 Surgical instruments, materials and orthopedic devices (including sutures) associated with adverse incidents; G56.02 Carpal tunnel syndrome, left upper limb; E11.9 Type 2 diabetes mellitus without complications; I10 Essential (primary) hypertension; J44.9 Chronic obstructive pulmonary disease, unspecified; I50.9 Heart failure, unspecified; E66.01 Morbid (severe) obesity due to excess calories; Z68.41 Body mass index [BMI] 40.0-44.9, adult
CPT/HCPCS: 20680; 71045; 73110-LT; 82962; 88300

== ENCOUNTER 2017-12-21 16:42 | Emergency (ER) | payer OTHER ==
[2017-12-21 18:02] LABS: ADD MAN DIFF? NO
[2017-12-21 18:08] LABS: ABNORMAL IP MESSAGE 1; BASOPHIL # 0.1 10^3/ul (0.0-0.1); BASOPHILS % 0.5 % (0.0-2.0); EOSINOPHILS # 0.2 10^3/ul (0.0-0.5); EOSINOPHILS % 0.9 % (0.0-7.0); HEMOGLOBIN 13.7 g/dl (14.0-18.0); LYMPHOCYTES # 4.2 10^3/ul (0.8-2.9); LYMPHOCYTES % 24.6 % (15.0-51.0); MEAN CORPUSCULAR HEMOGLOBIN 28.6 pg (29.0-33.0); MEAN CORPUSCULAR HGB CONC 31.9 g/dl (32.0-37.0); MEAN CORPUSCULAR VOLUME 89.8 fl (82.0-101.0); MEAN PLATELET VOLUME 10.6 fl (7.4-10.4); MONOCYTE # 1.7 10^3/ul (0.3-0.9); MONOCYTES % 9.6 % (0.0-11.0); PLATELET COUNT 274 10^3/UL (140-415); POSITIVE DIFF @See below; RED BLOOD COUNT 4.79 10^6/ul (4.70-6.10); RED CELL DISTRIBUTION WIDTH 15.6 % (11.5-14.5)
[2017-12-21 18:08] LABS: WHITE BLOOD COUNT 17.1 10^3/ul (4.8-10.8)
[2017-12-21] MEDS: HYDROmorphONE 0.5 MG/0.5 ML SYG IV (18:13)
[2017-12-21 18:34] LABS: B-TYPE NATRIURETIC PEPTIDE 382 PG/ML (0-125)
[2017-12-21 18:41] LABS: ALANINE AMINOTRANSFERASE 28 IU/L (13-69); ALBUMIN 3.8 g/dl (3.3-4.9); ALBUMIN/GLOBULIN RATIO 1.08; ALKALINE PHOSPHATASE 127 IU/L (42-121); ANION GAP 14 (8-16); ASPARTATE AMINO TRANSFERASE 40 IU/L (15-46); BILIRUBIN,INDIRECT 0.8 mg/dl (0-1.1); BILIRUBIN,TOTAL 0.8 mg/dl (0.2-1.3); BLOOD UREA NITROGEN 13 mg/dl (7-20); CALCIUM 9.7 mg/dl (8.4-10.2); CARBON DIOXIDE 27 mmol/L (21-31); CHLORIDE 106 mmol/L (97-110); CREATININE 0.68 mg/dl (0.61-1.24); GLUCOSE 119 mg/dl (70-220); LIPASE 56 U/L (23-300); POTASSIUM 4.9 mmol/L (3.5-5.1); SODIUM 142 mmol/L (135-144); TOTAL PROTEIN 7.3 g/dl (6.1-8.1)
[2017-12-21 18:55] LABS: URINE BLOOD (Dip) POC Negative (NEGATIVE); URINE GLUCOSE (Dip) POC Negative (NEGATIVE); URINE KETONES (Dip) POC Negative (NEGATIVE); URINE LEUKOCYTE EST (Dip) POC Negative (NEGATIVE); URINE NITRITE (Dip) POC Negative (NEGATIVE); URINE TOTAL PROTEIN POC 1+ (NEGATIVE)
[2017-12-21 18:55] LABS: URINE PH (Dip) POC 5.5 (5.0-8.5)
== END 2017-12-21 19:24 | disposition home or self-care (01) ==
LOC: E/R 16:42
DX: M54.5 Low back pain (principal); D64.9 Anemia, unspecified; I10 Essential (primary) hypertension; I25.10 Atherosclerotic heart disease of native coronary artery without angina pectoris; E66.9 Obesity, unspecified; E11.9 Type 2 diabetes mellitus without complications; I50.9 Heart failure, unspecified; Z68.42 Body mass index [BMI] 45.0-49.9, adult; Z79.4 Long term (current) use of insulin
CPT/HCPCS: 36415; 71045; 80053; 81003; 83690; 83880; 85025; 93005; 96374; 99285-25

== ENCOUNTER 2018-02-03 16:06 | Day surgery (SDC) | payer OTHER ==
[~2018-02-03 16:06] MED LIST changes: +CEFAZOLIN 2 GM/50 ML (PMX) 50 ML IVPB; -CEFAZOLIN 3 GM in DEXTROSE 5% 100 ML IVPB; -LIDOCAINE 2% (SDV) 5 ML INJ; -ROCURONIUM 50 MG INJ
[2018-02-03] MEDS ORDERED: BUPIVACAINE 0.5% (SDV) 30 ML INJ (18:18)
[2018-02-03] MEDS ORDERED: PROPOFOL 20 ML (18:26)
[2018-02-03] MEDS ORDERED: ROPIVACAINE 0.5 % 30 ML VIAL (18:26)
[2018-02-03] MEDS ORDERED: LIDOCAINE 2% (SDV) 5 ML INJ (18:26)
[2018-02-03] MEDS ORDERED: CEFAZOLIN 1 GM INJ (18:26)
[2018-02-03] MEDS: POLYMYXIN/BACITRACIN 1L IRRIG (19:16)
[2018-02-03] MEDS ORDERED: VANCOMYCIN 1 GM (PMX) 250 ML (20:24)
[2018-02-03] MEDS ORDERED: EPHEDrine SULFATE 50 MG/5 ML SYG IV (21:00)
[2018-02-03] MEDS ORDERED: HYDROmorphONE 1 MG/5 ML IV SYRINGE IV ×2 (21:00)
[2018-02-03] MEDS ORDERED: hydrALAzine 20 MG INJ IV (21:00)
[2018-02-03] MEDS ORDERED: METOCLOPRAMIDE 10 MG INJ IV (21:00)
[2018-02-03] MEDS ORDERED: ONDANSETRON 4 MG INJ IV (21:00)
[2018-02-03] MEDS ORDERED: DIPHENHYDRAMINE 50 MG INJ IV (21:00)
[2018-02-03] MEDS ORDERED: MIDAZOLAM 1 MG/ML 2 ML INJ IV (21:00)
[2018-02-03] MEDS ORDERED: OXYCODONE/ACETAMINOPHEN (5/325) TAB PO (21:00)
[2018-02-03] MEDS ORDERED: FENTAnyl 50 MCG/ML VIAL IV ×2 (21:00)
[2018-02-03] MEDS ORDERED: LABETALOL HCL 20MG INJ IV (21:00)
[2018-02-03] MEDS: FENTAnyl 50 MCG/ML VIAL IV ×3 (21:06→21:52)
[2018-02-03] MEDS: HYDROmorphONE 1 MG/5 ML IV SYRINGE IV ×3 (21:06→21:50)
[2018-02-03] MEDS: MEPERIDINE 25 MG INJ IV (21:51)
[2018-02-03] MEDS: OXYCODONE/ACETAMINOPHEN (5/325) TAB PO (21:54)
== END 2018-02-03 22:45 | disposition home or self-care (01) ==
LOC: SDS 16:06
DX: T84.84XA Pain due to internal orthopedic prosthetic devices, implants and grafts, initial encounter (principal); Y79.3 Surgical instruments, materials and orthopedic devices (including sutures) associated with adverse incidents; Y83.8 Other surgical procedures as the cause of abnormal reaction of the patient, or of later complication, without mention of misadventure at the time of the procedure; S52.202K Unspecified fracture of shaft of left ulna, subsequent encounter for closed fracture with nonunion; X58.XXXD Exposure to other specified factors, subsequent encounter; I48.2 Chronic atrial fibrillation; E78.2 Mixed hyperlipidemia
CPT/HCPCS: 25405; 73090; 82962; 93005